=== PATIENT | female | born 1980 | race Caucasian/White ===

== ENCOUNTER 2017-10-29 00:49 | Emergency (ER) | payer BC ==
[~2017-10-29] VITALS: Ht 160 cm; Wt 59.5 kg
[~2017-10-29 00:49] MED LIST: CARAFATE100 MG/ML PO; CYMBALTA20 MG PO; FIORICET,ESG1 TABLET PO; NAPROSYN500 MG PO; XANAX0.5 MG PO; ZOFRAN ODT4 MG PO; ZOFRAN ODT8 MG PO
[2017-10-29 02:27] LABS: HEMOGLOBIN 11.3 G/DL (11.9-15.5); MCH 25.9 PG (29.0-34.0); MCHC 32.3 G/DL (30.0-36.0); MCV 80.3 FL (83-99); PLATELET COUNT 428 K/uL (156-360); RBC DIS.WIDTH-CV 14.6 % (11.8-14.6); RBC DIS.WIDTH-SD 42.8 % (39-53); RED BLOOD COUNT 4.36 M/uL (3.80-5.20); WHITE BLOOD COUNT 9.1 K/uL (4.1-10.2)
[2017-10-29 02:39] LABS: CHLORIDE 109 mEq/L (99-109); POTASSIUM 3.6 mEq/L (3.7-5.4); SODIUM 139 mEq/L (136-147)
[2017-10-29 02:40] LABS: APPEARANCE CLEAR ((CLEAR)); BILIRUBIN NEGATIVE; BLOOD NEGATIVE; COLOR STRAW ((YELLOW)); GLUCOSE (STRIP) NEGATIVE; KETONES NEGATIVE; LEUKOCYTES NEGATIVE; NITRITE NEGATIVE; PROTEIN (STRIP) NEGATIVE; SPECIFIC GRAVITY 1.008 (1.000-1.030); UCUL ADDED? NO; UROBILINOGEN 0.2 MG/DL (0.2-1.0)
[2017-10-29 02:41] LABS: GLUCOSE 107 mg/dL (70-99)
[2017-10-29 02:45] LABS: CREATININE 0.8 mg/dL (0.6-1.3); GFR ESTIMATE (CALCULATED) > 59 mL/min/
[2017-10-29 02:46] LABS: UREA NITROGEN (BUN) 10 mg/dL (9-23)
[2017-10-29 02:53] LABS: QUANTITATIVE HCG < 4.0 MIU/ML
[2017-10-29 04:19] VITALS: BP 147/90
== END 2017-10-29 04:20 | disposition home or self-care (01) ==
LOC: EME 00:49
PROVIDERS: Physician Assistant
DX: B34.9 Viral infection, unspecified (principal); E86.0 Dehydration; R55 Syncope and collapse; R53.83 Other fatigue; F41.9 Anxiety disorder, unspecified; N83.201 Unspecified ovarian cyst, right side; Z98.51 Tubal ligation status; Z88.2 Allergy status to sulfonamides; Z88.0 Allergy status to penicillin
CPT/HCPCS: 80048; 81003; 84702; 85027; 87502; 99281; 99285; J2405; J7030

== ENCOUNTER 2018-02-15 17:43 | Emergency (ER) | payer BC ==
[~2018-02-15] VITALS: Ht 160 cm; Wt 58.9 kg
[2018-02-15 18:48] LABS: HEMATOCRIT 38.3 % (36.0-46.0); HEMOGLOBIN 12.4 G/DL (11.9-15.5); MCH 26.5 PG (29.0-34.0); MCHC 32.4 G/DL (30.0-36.0); MCV 81.8 FL (83-99); PLATELET COUNT 446 K/uL (156-360); RBC DIS.WIDTH-CV 15.3 % (11.8-14.6); RBC DIS.WIDTH-SD 44.8 % (39-53); RED BLOOD COUNT 4.68 M/uL (3.80-5.20)
[2018-02-15 18:57] LABS: D-DIMER ELISA < 150.00 ng/mLDDU (<230)
[2018-02-15 18:59] LABS: CHLORIDE 106 mEq/L (99-109); SODIUM 140 mEq/L (136-147)
[2018-02-15 19:01] LABS: GLUCOSE 101 mg/dL (70-99)
[2018-02-15 19:05] LABS: CREATININE 0.8 mg/dL (0.6-1.3); GFR ESTIMATE (CALCULATED) > 59 mL/min/
[2018-02-15 19:06] LABS: UREA NITROGEN (BUN) 7 mg/dL (9-23)
[2018-02-15 19:09] LABS: TROP-I INTERPRETATION NEGATIVE; TROPONIN-I < 0.01 ng/mL (0.0-0.30)
[2018-02-15 19:10] LABS: QUANTITATIVE HCG < 4.0 MIU/ML
[2018-02-15 21:30] LABS: ALBUMIN 4.5 g/dL (3.2-4.8)
[2018-02-15 21:33] LABS: TOTAL PROTEIN 8.2 g/dL (6.4-8.3)
[2018-02-15 21:35] LABS: TOTAL BILIRUBIN 0.4 mg/dL (0.0-1.0)
[2018-02-15 21:36] LABS: ALKALINE PHOSPHATASE 75 IU/L (3-129)
[2018-02-15 21:38] LABS: AST (GOT) 18 IU/L (2-34); DIRECT BILIRUBIN 0.2 mg/dL (0.0-0.3)
[2018-02-15 21:39] LABS: ALT (GPT) 13 IU/L (3-49); LIPASE 31 U/L (1.0-51.0)
[2018-02-15 22:20] LABS: TROP-I INTERPRETATION NEGATIVE; TROPONIN-I < 0.01 ng/mL (0.0-0.30)
[2018-02-15] MEDS ORDERED: CARAFATE1 GM PO (22:24)
[2018-02-15] MEDS ORDERED: TRAMADOL HCL50 MG PO (22:24)
[2018-02-15] MEDS ORDERED: PREVACID30 MG PO (22:24)
[2018-02-15 22:34] VITALS: BP 115/75
== END 2018-02-15 22:36 | disposition home or self-care (01) ==
LOC: EME 17:43
PROVIDERS: Physician Assistant
DX: R07.9 Chest pain, unspecified (principal); R10.13 Epigastric pain; K21.9 Gastro-esophageal reflux disease without esophagitis; Z82.3 Family history of stroke; F41.9 Anxiety disorder, unspecified; Z88.2 Allergy status to sulfonamides; Z88.0 Allergy status to penicillin
CPT/HCPCS: 71046; 80048; 80076; 83690; 84484; 84702; 85027; 85379; 93005; 99281; 99285; J1885; J7030